=== PATIENT | female | born 1990 | race Two or more races ===

== ENCOUNTER 2022-09-01 10:28 | Emergency (ER) | payer MEDICAID, OTHER ==
[~2022-09-01] VITALS: Ht 162.6 cm; Wt 100.0 kg
[2022-09-01] MEDS ORDERED: ALBUTEROL SULF 2.5 MG/0.5ML(0.5%) NEB SOLN NEB ONE (10:45)
[2022-09-01] MEDS ORDERED: IPRATROPIUM BROM 0.5 MG/2.5ML INH SOL NEB ONE (10:45)
[2022-09-01] MEDS ORDERED: methylPREDNISolone SOD SUCC 125 MG/2 ML VL IM ONE (10:45)
[2022-09-01] MEDS ORDERED: ALBUTEROL MEDNEB 2.5 mg/3ml NEB ONE (10:51)
[2022-09-01] MEDS ORDERED: ALBUAER3 IN (11:29)
[2022-09-01] MEDS ORDERED: METH4PAK PO (11:29)
[2022-09-01 11:47] VITALS: BP 141/94
== END 2022-09-01 11:49 | disposition home or self-care (01) ==
LOC: ER 10:28
DX: J45.909 Unspecified asthma, uncomplicated (principal)
CPT/HCPCS: 71046; 94640; 96372; 99283; J2930; J7644

== ENCOUNTER 2022-12-26 09:40 | Emergency (ER) | payer SELFPAY ==
[~2022-12-26] VITALS: Ht 160 cm; Wt 106.0 kg
[~2022-12-26 09:40] MED LIST: ALBUAER3 IN; METH4PAK PO
[2022-12-26 10:32] VITALS: BP 120/74
[2022-12-26] MEDS ORDERED: IPRATROPIUM BROM 0.5 MG/2.5ML INH SOL NEB ONE (11:00)
[2022-12-26] MEDS ORDERED: methylPREDNISolone SOD SUCC 125 MG/2 ML VL IM ONE (11:00)
[2022-12-26] MEDS ORDERED: cefTRIAXone SOD 1,000 MG VL IM ONE (11:00)
[2022-12-26] MEDS ORDERED: ALBUTEROL SULF 2.5 MG/0.5ML(0.5%) NEB SOLN NEB ONE (11:00)
[2022-12-26] MEDS ORDERED: DexAMETHasone SOD PHOS 10MG/1ML VIAL INJ IM ONE (11:00)
[2022-12-26] MEDS ORDERED: ALBU108A5 IN (11:39)
[2022-12-26] MEDS ORDERED: ALB5IS NEB (11:39)
[2022-12-26] MEDS ORDERED: PRED20TA2 PO (11:39)
== END 2022-12-26 11:43 | disposition home or self-care (01) ==
LOC: ER 09:40
DX: J45.901 Unspecified asthma with (acute) exacerbation (principal); J03.90 Acute tonsillitis, unspecified
CPT/HCPCS: 71045; 94640; 96372; 99284; J0696; J1100; J7644